=== PATIENT | female | born 1995 | race Caucasian/White ===

== ENCOUNTER → 2017-03-11 | Emergency (ER) | payer SELFPAY ==
[~2017-03-11] VITALS: Ht 162.6 cm; Wt 90.7 kg
[~2017-03-11] MED LIST: CEFTRIAXONE SOD 1 GM VIAL IV STA; DEXAMETHASONE SOD PHOS 10 MG/1 ML VIAL IV ONE; IOPAMIDOL 370 MG/ML 200 ML INFUS..BTL INJ ONE; SODIUM CHLORIDE 0.9% 50ML 50 ML ONE
[2017-03-11 23:04] LABS: BASOPHILS % 0.3 % (0.0-1.0); EOSINOPHILS # (AUTO) 0.1 (0.0-0.4); EOSINOPHILS % 0.6 % (0.0-6.0); HEMATOCRIT 41.3 % (34.2-44.1); HEMOGLOBIN 13.6 g/dL (12.0-16.0); LYMPHOCYTES # (AUTO) 2.4 (1.0-3.2); LYMPHOCYTES % 22.6 % (18.0-39.1); MEAN CORPUSCULAR HEMOGLOBIN 27.2 pg (28-32); MEAN CORPUSCULAR HGB CONC 32.9 g/dL (31-35); MEAN CORPUSCULAR VOLUME 82.6 fL (81-99); MONOCYTES # (AUTO) 0.7 (0.2-0.8); MONOCYTES % 6.8 % (4.4-11.3); NEUTROPHILS # (AUTO) 7.3 (2.1-6.9); NEUTROPHILS % 69.2 % (38.7-80.0); PLATELET COUNT 301 x10e3/uL (140-360); RED CELL DISTRIBUTION WIDTH 13.4 % (11.7-14.4)
[2017-03-11 23:23] LABS: ALANINE AMINOTRANSFERASE 19 IU/L (0-55); ALBUMIN 3.5 g/dL (3.5-5.0); ALBUMIN/GLOBULIN RATIO 0.8 (0.8-2.0); ALKALINE PHOSPHATASE 70 IU/L (40-150); ANION GAP 15.3 mmol/L (8-16); BLOOD UREA NITROGEN 8 mg/dL (7-26); BUN/CREATININE RATIO 10 (6-25); CALCIUM 9.1 mg/dL (8.4-10.2); CARBON DIOXIDE 19 mmol/L (22-29); CHLORIDE 108 mmol/L (98-107); CREATININE, SERUM 0.81 mg/dL (0.57-1.11); EST GLOMERULAR FILTRATION RATE > 60 ML/MIN (60-); GLUCOSE 119 mg/dL (74-118); POTASSIUM 4.3 mmol/L (3.5-5.1); SODIUM 138 mmol/L (136-145)
--- NOTE | 2017-03-12 00:49 | Diagnostic Imaging Report ---
EXAMINATION: CT of the neck with contrast HISTORY: Evaluate for retropharyngeal abscess. Sore throat and swelling on the right side for the last week COMPARISON: None TECHNIQUE: Multidetector helical axial images were obtained from the sternal notch through the skull base during intravenous infusion of iodinated contrast material. Images were reconstructed using soft tissue and bone algorithms and were viewed in multiplanar format. Intravenous contrast: 100 mL [id number]-[id number]. FINDINGS: Mass: Mild diffuse enlargement and swelling of the right parotid gland, with minimal stranding of the surrounding fat and thickening of the underlying platysma muscle. No evidence of calculi within the parotid gland or in the parotid gland duct. Nodes: Enlarged and enhancing likely reactive lymph nodes on levels 1B, 2A, 2B,3, largest one measuring about 1.8 cm. Sinuses: Mild mucosal inflammatory thickening of the bilateral maxillary, anterior ethmoidal anterolisthesis that extend the frontal sinuses. Oral cavity: Unremarkable. Salivary glands: Parotid and submandibular glands unremarkable. Pharynx: Unremarkable, particularly no tonsillar, peritonsillar or retropharyngeal abscess. Larynx: Unremarkable. Thyroid gland: Unremarkable. Upper esophagus: Unremarkable. Blood vessels: Unremarkable. Bones: Unremarkable. IMPRESSION: 1. Consistent with parotitis and associated likely reactive enlarged cervical lymphadenopathy. 2. No tonsillar/peritonsillar or retropharyngeal abscess. 3. Mild mucosal inflammatory thickening of the frontal, ethmoidal and maxillary sinuses. Signed by: Dr. Henrietta Wick M.D. on 03/12/2017 12:46 AM
== END ==
LOC: ER 22:43
DX: K11.21 Acute sialoadenitis (principal)
CPT/HCPCS: 36415; 70491; 80053; 83518; 84702; 85025; 87070; J0696; J1100